=== PATIENT | male | born 2000 | race Hispanic/Latino ===

== ENCOUNTER 2022-03-18 08:35 | Observation (INO) | payer OTHER ==
[2022-03-18] MEDS ORDERED: SODIUM CHLORIDE 0.9% 1000 ML 1,000 ML ONE ×2 (09:09→12:23)
[2022-03-18] MEDS ORDERED: LORazepam 2 MG/ML VIAL ONE (09:09)
[2022-03-18 10:43] LABS: Basophils % (Auto) 0.2 % (0.0-1.8); Eosinophils % (Auto) 0.1 % (0.0-4.3); Hematocrit 43.9 % (35.5-45.6); Lymphocytes # (Auto) 0.9 K/mm3 (1.2-5.4); Lymphocytes % (Auto) 7.2 % (13.4-35.0); Mean Corpuscular HGB Conc 34 % (32-34); Mean Corpuscular Volume 87 fl (84-94); Monocytes # (Auto) 0.8 K/mm3 (0.0-0.8); Monocytes % (Auto) 6.4 % (0.0-7.3); Platelet Count 330 K/mm3 (140-440); Red Blood Count 5.04 M/mm3 (3.65-5.03)
--- NOTE | 2022-03-18 11:03 | Emergency Department Report ---
ED Medical Clearance HPI - General Chief complaint: Medical Clearance Stated complaint: BENZO WITHDRAWL Time Seen by Provider: 03/18/22 10:34 Source: patient, EMS Mode of arrival: Stretcher - History of Present Illness Initial comments: 21 yo M with history of opioid dependent being treated at [facility] who was sent in to the emergency room to be evaluated for suspected seizure this morning. When asked patient also mention seizure. Per the EMS started patient was having withdrawal syndrome from benzo. He usually takes clonazepam and Benadryl which is scheduled to be given [id number]. Patient also denies any any suicidal or homicidal ideation. Patient is a little bit sleepy during examination was responding to verbal command. Patient denies any abdominal pain, nausea or vomiting. No other modifying or associated factors reported. Allergies/Adverse reactions: Allergies Allergy/AdvReac Type Severity Reaction Status Date / Time red (food color) AdvReac Unknown Verified 03/18/22 08:45 ED Review of Systems ROS: Stated complaint: BENZO WITHDRAWL Other details as noted in HPI Comment: All other systems reviewed and negative Constitutional: weakness Psychiatric: other (Medical clearance). denies: homicidal thoughts, suicidal thoughts ED Physical Exam - General Limitations: No Limitations General appearance: other (sleepy could be postictal ) - Head Head exam: Present: atraumatic, normal inspection - Eye Eye exam: Present: normal appearance Pupils: Present: normal accommodation - ENT ENT exam: Present: normal exam, normal orophraynx, mucous membranes dry - Neck Neck exam: Present: normal inspection, full ROM. Absent: tenderness - Respiratory Respiratory exam: Present: normal lung sounds bilaterally. Absent: respiratory distress, accessory muscle use - Cardiovascular Cardiovascular Exam: Present: regular rate, normal rhythm, normal heart sounds - GI/Abdominal GI/Abdominal exam: Present: soft, normal bowel sounds. Absent: distended, tenderness, guarding - Extremities Exam Extremities exam: Present: normal inspection, normal capillary refill. Absent: tenderness, pedal edema - Back Exam Back exam: Absent: tenderness - Neurological Exam Neurological exam: Present: alert, oriented X3, other (but sleepy ) - Psychiatric Psychiatric exam: Present: normal affect, normal mood - Skin Skin exam: Present: warm, normal color ED Course Vital Signs 03/18/22 03/18/22 03/18/22 08:40 09:22 09:34 Temperature 98.8 F Pulse Rate 130 H 107 H 112 H Respiratory 18 21 22 Rate Blood Pressure Blood Pressure 135/89 111/57 [Left] O2 Sat by Pulse 96 100 96 Oximetry 03/18/22 03/18/22 03/18/22 09:45 10:00 10:14 Temperature Pulse Rate 102 H 108 H 87 Respiratory 21 20 18 Rate Blood Pressure 109/47 109/47 Blood Pressure 113/55 [Left] O2 Sat by Pulse 97 99 100 Oximetry 03/18/22 03/18/22 03/18/22 10:16 10:30 10:38 Temperature Pulse Rate 99 H 108 H Respiratory 18 12 18 Rate Blood Pressure 103/49 112/56 Blood Pressure [Left] O2 Sat by Pulse 100 98 96 Oximetry 03/18/22 03/18/22 03/18/22 10:46 11:00 11:16 Temperature Pulse Rate 88 86 93 H Respiratory 19 20 18 Rate Blood Pressure 109/54 116/56 116/56 Blood Pressure [Left] O2 Sat by Pulse 99 99 100 Oximetry 03/18/22 03/18/22 03/18/22 11:30 11:46 12:12 Temperature Pulse Rate 118 H 127 H Respiratory 19 26 H Rate Blood Pressure 133/52 125/77 140/90 Blood Pressure [Left] O2 Sat by Pulse 98 97 Oximetry 03/18/22 03/18/22 03/18/22 12:16 12:20 12:30 Temperature Pulse Rate 123 H 133 H Respiratory 19 40 H Rate Blood Pressure 140/90 132/52 Blood Pressure 134/65 [Left] O2 Sat by Pulse 98 100 97 Oximetry 03/18/22 03/18/22 03/18/22 12:46 12:51 12:57 Temperature Pulse Rate 137 H 114 H 109 H Respiratory 27 H 18 18 Rate Blood Pressure 132/50 Blood Pressure 125/50 125/50 [Left] O2 Sat by Pulse 97 99 99 Oximetry 03/18/22 03/18/22 03/18/22 13:00 13:18 13:30 Temperature Pulse Rate 114 H 99 H 99 H Respiratory 20 19 19 Rate Blood Pressure 140/90 140/90 140/90 Blood Pressure [Left] O2 Sat by Pulse 97 Oximetry 03/18/22 03/18/22 03/18/22 13:46 14:00 14:16 Temperature Pulse Rate 100 H 93 H 104 H Respiratory 18 17 16 Rate Blood Pressure 125/47 125/50 102/43 Blood Pressure [Left] O2 Sat by Pulse Oximetry 03/18/22 14:22 Temperature Pulse Rate Respiratory Rate Blood Pressure Blood Pressure [Left] O2 Sat by Pulse 100 Oximetry - Reevaluation(s) Reevaluation #1: 03/18/22 12:47 I was called to the patient room while he was having generalized body rigidity and shakiness -- that is likely as a result of benzo withdrawal seizure-- pt was ordered for ativan 2 mg IV x 1 and Keppra 1 g IVPB x [address] head to rule out any intracranial bleed or ischemia. Reevaluation #2: 03/18/22 14:51 Pt signed out to Dr George at shift change while waiting for patient response to the above initial treatment and for the hospitalist to call back for possible admission for benzo withdrawal seizure-- Reevaluation #3: 03/18/22 15:[address] to ED and accept pt for further evaluation and treatment ED Medical Decision Making - Lab Data Result diagrams: 03/18/22 09:49 03/18/22 09:49 - Medical Decision Making here with medical clearance for psych hospital -- will go ahead and get routine psych workup before clearance-- CT head ordered to rule out any intracrania abnormality-- but noted with no acute findings- Pt given 2 mg ativan while he was having active seizure and loading dose Keppra 1 g IVPB 1-- ED Disposition Clinical Impression: Medical clearance for psychiatric admission Benzodiazepine withdrawal Qualifiers: Complication of substance-induced condition: with unspecified complication Qualified Code(s): F13.239 - Sedative, hypnotic or anxiolytic dependence with withdrawal, unspecified Disposition: 09 ADMITTED INPATIENT Is pt being admited?: Yes Does the pt Need Aspirin: No Condition: Stable Time of Disposition: 15:10 (Dr Lane accept )
[2022-03-18 11:05] LABS: Alanine Aminotransferase 37 units/L (7-56); Albumin 4.6 g/dL (3.9-5); BUN/Creatinine Ratio 10; Blood Urea Nitrogen 12 mg/dL (9-20); Calcium 9.4 mg/dL (8.4-10.2); Hemolysis Index 3
[2022-03-18] MEDS ORDERED: LORazepam 2 MG/ML VIAL IV ONE ×2 (12:22→12:50)
[2022-03-18] MEDS ORDERED: SODIUM CHLORIDE 0.9% 1000 ML 1,000 ML IV ONE ×2 (12:22)
[2022-03-18] MEDS ORDERED: levETIRAcetam 1000 MG/NS 0.75% 1,000 MG/100 ML BAG IV ONE (12:29)
--- NOTE | 2022-03-18 13:34 | Cat Scan Report ---
CT head/brain wo con INDICATION / CLINICAL INFORMATION: 21 years Male; stroke. TECHNIQUE: Routine CT head without contrast. All CT scans at this location are performed using CT dos e reduction for ALARA by means of automated exposure control. COMPARISON: None. FINDINGS: BRAIN / INTRACRANIAL CONTENTS: The brain appears to demonstrate appropriate attenuation. The ventricu lar system is within normal limits in size and configuration. There is no CT evidence of acute intrac ranial hemorrhage or significant mass effect. ORBITS: No significant abnormality of visualized orbits. SINUSES / MASTOIDS: No significant abnormality in the visualized paranasal sinuses or mastoid air colleen ls. CRANIOCERVICAL JUNCTION: No significant abnormality. ADDITIONAL FINDINGS: None. IMPRESSION: 1. There is no CT evidence of acute intracranial process. Signer Name: Salas Quinn MD Signed: 03/18/2022 1:29 PM Workstation Name: [id number]
[2022-03-18] MEDS ORDERED: MORPHINE 2 MG/1 ML INJ IV PRN (15:11)
[2022-03-18] MEDS ORDERED: ONDANSETRON 4 MG/2 ML INJ IV PRN (15:11)
[2022-03-18] MEDS ORDERED: ACETAMINOPHEN 325 MG TAB PO PRN (15:11)
[2022-03-18 15:16] LABS: Benzodiazepines Screen,Urine Negative; Cocaine Screen,Urine Negative; Methadone Screen,Urine Negative; Opiate Screen,Urine Negative
[2022-03-18 15:30] LABS: Amphetamine Screen,Urine Positive; Cannabinoid Screen,Urine Positive
--- NOTE | 2022-03-19 07:08 | History and Physical Report ---
History of Present Illness Date of examination: 03/18/22 Date of admission: 03/18/22 15:11 Chief complaint: Seizure disorder-new onset History of present illness: 21 yo M with history of opioid dependent being treated at [facility] who was sent in to the emergency room to be evaluated for suspected seizure this morning. When asked patient also mention seizure. Per the EMS started patient was having withdrawal syndrome from benzo. He usually takes clonazepam and Benadryl which is scheduled to be given [id number]. Patient also denies any any suicidal or homicidal ideation. Patient is a little bit sleepy during examination was responding to verbal command. Patient denies any abdominal pain, nausea or vomiting. No other modifying or associated factors reported. Allergies/Adverse reactions: Allergies Allergy/AdvReac Type Severity Reaction Status Date / Time red (food color) AdvReac Unknown Verified 03/18/22 08:45 Review of Systems ROS: Stated complaint: BENZO WITHDRAWL Other details as noted in HPI Comment: All other systems reviewed and negative Constitutional: weakness Psychiatric: other (Medical clearance). denies: homicidal thoughts, suicidal thoughts Past History Past Medical History: other (Depression) Past Surgical History: No surgical history Social history: lives with family, full code Family history: no significant family history Medications and Allergies Allergies Allergy/AdvReac Type Severity Reaction Status Date / Time red (food color) AdvReac Unknown Verified 03/18/22 08:45 Active Meds: Active Medications Acetaminophen (Acetaminophen 325 Mg Tab) 650 mg PO Q4H PRN PRN Reason: Pain MILD(1-3)/Fever >100.5/ARCE Morphine Sulfate (Morphine 2 Mg/1 Ml Inj) 2 mg IV Q4H PRN PRN Reason: Pain, Moderate (4-6) Ondansetron HCl (Ondansetron 4 Mg/2 Ml Inj) 4 mg IV Q8H PRN PRN Reason: Nausea And Vomiting Sodium Chloride (Sodium Chloride 0.9% 10 Ml Flush Syringe) 10 ml IV BID LAWANDA Last Admin: 03/18/22 22:07 Dose: 10 ml Sodium Chloride (Sodium Chloride 0.9% 10 Ml Flush Syringe) 10 ml IV PRN PRN PRN Reason: LINE FLUSH Review of Systems All systems: negative Neurological: seizures Exam - Constitutional Vitals: Temp Pulse Resp BP Pulse Ox 98.7 F 98 H 18 105/47 98 03/19/22 03:57 03/19/22 03:57 03/19/22 03:57 03/19/22 03:57 03/19/22 03:57 General appearance: Present: no acute distress, well-nourished - EENT Eyes: Present: PERRL ENT: hearing intact, clear oral mucosa - Neck Neck: Present: supple, normal ROM - Respiratory Respiratory effort: normal Respiratory: bilateral: CTA - Cardiovascular Heart rate: 78 Rhythm: regular Heart Sounds: Present: S1 & S2. Absent: rub, click - Extremities Extremities: pulses symmetrical, No edema Peripheral Pulses: within normal limits - Abdominal General gastrointestinal: Present: soft, non-tender, non-distended, normal bowel sounds Male genitourinary: Present: normal - Integumentary Integumentary: Present: clear, warm, dry - Musculoskeletal Musculoskeletal: gait normal, strength equal bilaterally - Psychiatric Psychiatric: appropriate mood/affect, intact judgment & insight - Neurologic Neurologic: CNII-XII intact, moves all extremities Results - Labs CBC & Chem 7: 03/18/22 09:49 03/18/22 09:49 Labs: Laboratory Last Values WBC 12.6 K/mm3 (4.5-11.0) H 03/18/22 09:49 RBC 5.04 M/mm3 (3.65-5.03) H 03/18/22 09:49 Hgb 15.0 gm/dl (11.8-15.2) 03/18/22 09:49 Hct 43.9 % (35.5-45.6) 03/18/22 09:49 MCV 87 fl (84-94) 03/18/22 09:49 MCH 30 pg (28-32) 03/18/22 09:49 MCHC 34 % (32-34) 03/18/22 09:49 RDW 13.0 % (13.2-15.2) L 03/18/22 09:49 Plt Count 330 K/mm3 (140-440) 03/18/22 09:49 Lymph % (Auto) 7.2 % (13.4-35.0) L 03/18/22 09:49 [place] % (Auto) 6.4 % (0.0-7.3) 03/18/22 09:49 Eos % (Auto) 0.1 % (0.0-4.3) 03/18/22 09:49 Baso % (Auto) 0.2 % (0.0-1.8) 03/18/22 09:49 Lymph # (Auto) 0.9 K/mm3 (1.2-5.4) L 03/18/22 09:49 [place] # (Auto) 0.8 K/mm3 (0.0-0.8) 03/18/22 09:49 Eos # (Auto) 0.0 K/mm3 (0.0-0.4) 03/18/22 09:49 Baso # (Auto) 0.0 K/mm3 (0.0-0.1) 03/18/22 09:49 Seg Neutrophils % 86.1 % (40.0-70.0) H 03/18/22 09:49 Seg Neutrophils # 10.8 K/mm3 (1.8-7.7) H 03/18/22 09:49 Sodium 140 mmol/L (137-145) 03/18/22 09:49 Potassium 4.4 mmol/L (3.6-5.0) 03/18/22 09:49 Chloride 103.6 mmol/L (98-107) 03/18/22 09:49 Carbon Dioxide 19 mmol/L (22-30) L 03/18/22 09:49 Anion Gap 22 mmol/L 03/18/22 09:49 BUN 12 mg/dL (9-20) 03/18/22 09:49 Creatinine 1.2 mg/dL (0.8-1.3) 03/18/22 09:49 Estimated GFR > 60 ml/min 03/18/22 09:49 BUN/Creatinine Ratio 10 % 03/18/22 09:49 Glucose 132 mg/dL (75-100) H 03/18/22 09:49 Calcium 9.4 mg/dL (8.4-10.2) 03/18/22 09:49 Total Bilirubin 0.70 mg/dL (0.1-1.2) 03/18/22 09:49 AST 43 units/L (5-40) H 03/18/22 09:49 ALT 37 units/L (7-56) 03/18/22 09:49 Alkaline Phosphatase 98 units/L (35-129) 03/18/22 09:49 Total Protein 7.6 g/dL (6.3-8.2) 03/18/22 09:49 Albumin 4.6 g/dL (3.9-5) 03/18/22 09:49 Albumin/Globulin Ratio 1.5 % 03/18/22 09:49 Urine Opiates Screen Negative 03/18/22 14:37 Urine Methadone Screen Negative 03/18/22 14:37 Ur Barbiturates Screen Negative 03/18/22 14:37 Ur Phencyclidine Scrn Negative 03/18/22 14:37 Ur Amphetamines Screen Positive 03/18/22 14:37 U Benzodiazepines Scrn Negative 03/18/22 14:37 Urine Cocaine Screen Negative 03/18/22 14:37 U Marijuana (THC) Screen Positive 03/18/22 14:37 Drugs of Abuse Note Disclamer 03/18/22 14:37 Romero/IV: Voiding Method Urinal Assessment and Plan Assessment and plan: Full code Advance Directives: Yes (Full code) Plan of care discussed with patient/family: Yes - Patient Problems (1) Seizure disorder Current Visit: Yes Status: Acute Plan to address problem: New onset second seizure disorder secondary to Klonopin withdrawal Patient has not been given Klonopin Patient on Klonopin for generalized anxiety disorder Klonopin was stopped for some unknown reason Neurology consult IV Keppra started (2) Benzodiazepine withdrawal Current Visit: Yes Status: Acute Qualifiers: Complication of substance-induced condition: with unspecified complication Qualified Code(s): F13.239 - Sedative, hypnotic or anxiolytic dependence with withdrawal, unspecified Plan to address problem: Patient started on CIWA protocol with Ativan Will defer to mental health regarding Klonopin continuation or discontinuation (3) Depression Current Visit: Yes Status: Chronic Qualifiers: Depression Type: unspecified Qualified Code(s): F32.A - Depression, unspecified Plan to address problem: Continue antidepressants (4) DVT prophylaxis Current Visit: Yes Status: Acute Plan to address problem: On anticoagulation GI prophylaxis (5) Advance care planning Current Visit: Yes Status: Acute Plan to address problem: Disease education conducted, care plan discussed, diagnosis discussed, prognosis discussed. Patient is full code. Patient acknowledges understanding and agreement with care plan. +30 minutes.
[2022-03-19] MEDS ORDERED: LORazepam 2 MG/ML VIAL IV PRN (07:30)
[2022-03-19] MEDS ORDERED: chlordiazePOXIDE 25 MG CAP PO PRN (07:30)
[2022-03-19] MEDS ORDERED: levETIRAcetam 750 MG in DEXTROSE 5% IN WATER 100 ML IV SCH (09:00)
--- NOTE | 2022-03-19 09:37 | Electrocardiograph Report ---
[facility] Test Date: 2022-03-18 Test Time: 09:10:31 Pat Name: SHIMON CERNA Department: Room: A470 Gender: M [employer] Supervisor: [id number] : 2000 Requested By: ED DOC Order Number: [id number] Reading MD: Newton Robbins Measurements Intervals [place] Rate: 118 P: 82 MI: 144 QRS: 82 QRSD: 91 T: 68 QT: 340 QTc: 475 Interpretive Statements Sinus tachycardia No previous ECG available for comparison Electronically Signed On 03-19-2022 9:37:15 EDT by Newton Robbins
--- NOTE | 2022-03-19 12:27 | Consultation ---
History of Present Illness - Reason for Consult Consult date: 03/19/22 Reason for consult: mental health evaluation - Chief Complaint Chief complaint: Seizure disorder-new onset - History of Present Psychiatric Illness HPI:21 yo M with history of opioid dependent being treated at [facility] who was sent in to the emergency room to be evaluated for suspected seizure this morning. When asked patient also mention seizure. Per the EMS started patient was having withdrawal syndrome from benzo. He usually takes clonazepam and Benadryl which is scheduled to be given [id number]. Patient also denies any any suicidal or homicidal ideation. Patient is a little bit sleepy during examination was responding to verbal command. Patient denies any abdominal pain, nausea or vomiting. No other modifying or associated factors reported. The patient is a 21 year old male with history of Anxiety, Depression and ADHD. The patient was seen today. He is calm, alert and oriented x4. The patient is slow to respond but states he is "ok." He denies any current suicidal/homicidal ideation and denies hallucinations. Collateral form patient's mother Karen Antoine @ [phone]- she reports that the patient might be going through adjustment disorder; she states that since the patient was fired from his job at [employer] he has tried socializing via social media. She states that he recently had a bad experience with a girl he met on social media and was traumatized by that. She reports that the patient sees his PCP Dr. Akilah Mistry @ [phone] and a psychotherapist on a regular basis. She reports that the patient has been on Klonopin for a while and it is one of the medications that has worked for him. She also states that the patient's PCP is aware that he takes Kratom to help manage his anxiety. PAST PSYCHIATRIC HISTORY Diagnoses: Anxiety, Depression and ADHD Suicide attempts or Self-harm behavior: Denies Prior psychiatric hospitalizations: Yes Substance Abuse history: Denies Previous psychiatric medications tried:Denies Outpatient treatment: Denies PAST MEDICAL HISTORY: none reported Family Psychiatric History: None reported or documented SOCIAL HISTORY Marital Status: Single Living Arrangements: Lives with parents Employment Status:unemployed Access to guns/weapons: Denies Education: 11th grade History of Abuse: none reported Legal History: none reported REVIEW OF SYSTEMS Constitutional: Negative for weight loss ENT: Negative for stridor Respiratory: Negative for cough or hemoptysis All other systems reviewed and are negative MENTAL STATUS EXAMINATION General Appearance and Behavior: Age appropriate, good hygiene, wearing appropriate clothes, fair eye contact, cooperative polite with questioning. Cooperation: Participating/engaged Psychomotor Behavior: unremarkable and within normal limits Mood: calm Affect and affective range: congruent with mood Thought Process: Goal directed Thought Content: Reality oriented Speech: Normal volume, Regular rate and rhythm, Suicidal Ideation:Denies Homicidal Ideation: Denies Hallucinations: Denies Delusions: None Impulse Control: Normal Insight and Judgment: Limited insight and judgment, Memory: Normal, Attention: Normal, Orientation: Alert, oriented, Assessment and Plan (1) Hx of anxiety Treatment My recommendation is to start the patient on Chlordiazepoxide in tapering off benzodiazepines however, will continue with Klonopin on a reduced dose due to mothers preference. Continue home meds. Start Klonopin 0.5mg po BID Sitter: Per primary Medical: Per primary Disposition: Do not recommend acute inpatient psychiatric treatment. Agent Contract Clerk will provide patient with psychiatric outpatient resources. Will sign off. Thanks Case staffed with Dr. Junior Medications and Allergies Medications and Allergies Medications and Allergies Allergies Allergy/AdvReac Type Severity Reaction Status Date / Time red (food color) AdvReac Unknown Verified 03/18/22 08:45 Home Medications Medication Instructions Recorded Confirmed Last Taken Type Citalopram [celeXA] 10 mg PO QDAY #30 tablet 03/19/22 Unknown Rx clonazePAM [ Klonopin] 0.5 mg PO BID 7 Days #14 tab 03/19/22 Unknown Rx clonazePAM [ Klonopin] 0.5 mg PO BID PRN #20 tab 03/19/22 Unknown Rx Active Meds: Active Medications Acetaminophen (Acetaminophen 325 Mg Tab) 650 mg PO Q4H PRN PRN Reason: Pain MILD(1-3)/Fever >100.5/ARCE Chlordiazepoxide HCl (Chlordiazepoxide 25 Mg Cap) 50 mg PO Q1H PRN PRN Reason: CIWA-Ar 8-15 Levetiracetam 750 mg/ Dextrose 107.5 mls @ 400 mls/hr IV Q12HR LAWANDA Last Admin: 03/19/22 10:48 Dose: 400 mls/hr Lorazepam (Lorazepam 2 Mg/Ml Vial) 2 mg IV Q1H PRN PRN Reason: CIWA-Ar 8-15 Morphine Sulfate (Morphine 2 Mg/1 Ml Inj) 2 mg IV Q4H PRN PRN Reason: Pain, Moderate (4-6) Ondansetron HCl (Ondansetron 4 Mg/2 Ml Inj) 4 mg IV Q8H PRN PRN Reason: Nausea And Vomiting Sodium Chloride (Sodium Chloride 0.9% 10 Ml Flush Syringe) 10 ml IV BID LAWANDA Last Admin: 03/19/22 10:48 Dose: 10 ml Sodium Chloride (Sodium Chloride 0.9% 10 Ml Flush Syringe) 10 ml IV PRN PRN PRN Reason: LINE FLUSH Mental Status Exam - Vital signs Last Vital Signs Temp 98.8 F 03/19/22 11:37 Pulse 104 H 03/19/22 11:37 Resp 18 03/19/22 11:37 BP 108/52 03/19/22 11:37 Pulse Ox 100 03/19/22 11:37 Results Result Diagrams: 03/18/22 09:49 03/18/22 09:49 All other labs normal.
[2022-03-19] MEDS: clonazePAM 0.5 MG TAB PO SCH ×2 (13:50→21:20)
[2022-03-19 17:44] VITALS: BP 118/54
--- NOTE | 2022-03-19 18:54 | Discharge Summary ---
Providers - Providers Date of Admission: 03/18/22 15:11 Date of discharge: 03/19/22 Attending physician: ANDREW ESCAMILLA 03/19/22 07:09 Consult to Mental Health [CONS] Routine Reason For Exam: benzo withdrawal Primary care physician: [employer]AL DEL[employer]ICER Hospitalization Condition: Stable Hospital course: Patient doing well No further seizures Pshychiatrically cleared (1) Benzodiazepine withdrawal Current Visit: Yes Status: Acute Qualifiers: Complication of substance-induced condition: with unspecified complication Qualified Code(s): F13.239 - Sedative, hypnotic or anxiolytic dependence with withdrawal, unspecified Plan to address problem: Patient started on CIWA protocol with Ativan Will defer to mental health regarding Klonopin continuation or discontinuation''' -- Anxiety disorder Per Treatment Will continue with Klonopin on a reduced dose due to mothers preference. Continue home meds. Start Klonopin 0.5 mg po bid Sitter: Per primary Medical: Per primary Disposition: Do not recommend acute inpatient psychiatric treatment. Hydrographic Engineer will provide patient with psychiatric outpatient resources. (2) Seizure disorder Current Visit: Yes Status: Acute Plan to address problem: New onset second seizure disorder secondary to Klonopin withdrawal Patient has not been given Klonopin Patient on Klonopin for generalized anxiety disorder Klonopin was stopped for some unknown reason Neurology consult IV Keppra started No need for Keppra as outpatient (3) Depression Current Visit: Yes Status: Chronic Qualifiers: Depression Type: unspecified Qualified Code(s): F32.A - Depression, unspecified Plan to address problem: Continue antidepressants Celexa 10 mg po qday 21 yo M with history of opioid dependent being treated at [facility] who was sent in to the emergency room to be evaluated for suspected seizure this morning. When asked patient also mention seizure. Per the EMS started patient was having withdrawal syndrome from benzo. He usually takes clonazepam and Benadryl which is scheduled to be given [id number]. Patient also denies any any suicidal or homicidal ideation. Patient is a little bit sleepy during examination was responding to verbal command. Patient denies any abdominal pain, nausea or vomiting. No other modifying or associated factors reported. The patient is a 21 year old male with history of Anxiety, Depression and ADHD. The patient was seen today. He is calm, alert and oriented x4. The patient is slow to respond but states he is "ok." He denies any current suicidal/homicidal ideation and denies hallucinations. Collateral form patient's mother Karen Antoine @ [phone]- she reports that the patient might be going through adjustment disorder; she states that since the patient was fired from his job at [employer] he has tried socializing via social media. She states that he recently had a bad experience with a girl he met on social media and was traumatized by that. She reports that the patient sees his PCP Dr. Akilah Mistry @ [phone] and a psychotherapist on a regular basis. She reports that the patient has been on Klonopin for a while and it is one of the medications that has worked for him. She also states that the patient's PCP is aware that he takes Kratom to help manage his anxiety. PAST PSYCHIATRIC HISTORY Diagnoses: Anxiety, Depression and ADHD Suicide attempts or Self-harm behavior: Denies Prior psychiatric hospitalizations: Yes Substance Abuse history: Denies Previous psychiatric medications tried:Denies Outpatient treatment: Denies PAST MEDICAL HISTORY: none reported Family Psychiatric History: None reported or documented SOCIAL HISTORY Marital Status: Single Living Arrangements: Lives with parents Employment Status:unemployed Access to guns/weapons: Denies Education: 11th grade History of Abuse: none reported Legal History: none reported REVIEW OF SYSTEMS Constitutional: Negative for weight loss ENT: Negative for stridor Respiratory: Negative for cough or hemoptysis All other systems reviewed and are negative MENTAL STATUS EXAMINATION General Appearance and Behavior: Age appropriate, good hygiene, wearing appropriate clothes, fair eye contact, cooperative polite with questioning. Cooperation: Participating/engaged Psychomotor Behavior: unremarkable and within normal limits Mood: calm Affect and affective range: congruent with mood Thought Process: Goal directed Thought Content: Reality oriented Speech: Normal volume, Regular rate and rhythm, Suicidal Ideation:Denies Homicidal Ideation: Denies Hallucinations: Denies Delusions: None Impulse Control: Normal Insight and Judgment: Limited insight and judgment, Memory: Normal, Attention: Normal, Orientation: Alert, oriented, Assessment and Plan (1) Disposition: 01 HOME / SELF CARE / HOMELESS Final Discharge Diagnosis (Prints w/discharge instructions): Generalized anxiety disorder. Benzodiazepine withdrawal sisorder. Seizure disorder. Depression - Discharge Diagnoses (1) Seizure disorder Status: Acute (2) Benzodiazepine withdrawal Status: Acute Qualifiers: Complication of substance-induced condition: with unspecified complication Qualified Code(s): F13.239 - Sedative, hypnotic or anxiolytic dependence with withdrawal, unspecified (3) Depression Status: Chronic Qualifiers: Depression Type: unspecified Qualified Code(s): F32.A - Depression, unspec ified (4) DVT prophylaxis Status: Acute (5) Advance care planning Status: Acute Core Measure Documentation - Palliative Care Palliative Care/ Comfort Measures: Not Applicable - Core Measures Any of the following diagnoses?: none Exam - Constitutional Vitals: Temp Pulse Resp BP Pulse Ox 98.5 F 107 H 18 118/54 99 03/19/22 16:07 03/19/22 16:07 03/19/22 16:07 03/19/22 16:07 03/19/22 16:07 General appearance: Present: no acute distress, well-nourished - EENT Eyes: Present: PERRL ENT: hearing intact, clear oral mucosa - Neck Neck: Present: supple, normal ROM - Respiratory Respiratory effort: normal Respiratory: bilateral: CTA - Cardiovascular Heart rate: 78 Rhythm: regular Heart Sounds: Present: S1 & S2. Absent: rub, click - Extremities Extremities: pulses symmetrical, No edema Peripheral Pulses: within normal limits - Abdominal General gastrointestinal: Present: soft, non-tender, non-distended, normal bowel sounds Male genitourinary: Present: normal - Integumentary Integumentary: Present: clear, warm, dry - Musculoskeletal Musculoskeletal: gait normal, strength equal bilaterally - Psychiatric Psychiatric: appropriate mood/affect, intact judgment & insight - Neurologic Neurologic: CNII-XII intact, moves all extremities Plan Activity: no restrictions Diet: regular Follow up with: PRIMARY CARE, [Primary Care Provider] - 7 Days Prescriptions: clonazePAM [ Klonopin] 0.5 mg PO BID 7 Days #14 tab
== END 2022-03-19 22:38 | disposition home or self-care (01) ==
LOC: ED 08:35 → INTOOBSV 15:11 → 4A 15:11
PROVIDERS: ADMIT Internal Medicine; ATTEND Internal Medicine
DX: G40.909 Epilepsy, unspecified, not intractable, without status epilepticus (principal); F13.239 Sedative, hypnotic or anxiolytic dependence with withdrawal, unspecified; F32.A Depression, unspecified; F41.9 Anxiety disorder, unspecified; F90.9 Attention-deficit hyperactivity disorder, unspecified type; Z79.899 Other long term (current) drug therapy
CPT/HCPCS: 36415; 70450; 80053; 80307; 85025; 93005; 96361; 96365; 96366; 96375; 96376; 99285; G0378; J1953; J2060; J7030; J7060